=== PATIENT | female | born 1945 | race Caucasian/White ===

== ENCOUNTER 2022-09-03 16:03 | Emergency (ER) | payer OTHER, BC ==
[2022-09-03 17:44] LABS: Absolute Lymphocytes (CBC) 0.6 K/uL (0.7-4.9); MCV 91.4 fL (80-100); MPV 7.6 fL (7.6-11.3); Protime INR 1.05; RBC Red Blood Cell Count 4.05 M/uL (3.86-4.86)
[2022-09-03 17:52] LABS: Specific Gravity 1.008 (1.005-1.030); Urine Bilirubin NEGATIVE (Negative); Urine Blood Negative (Negative); Urine Clarity Clear (Clear); Urine Color Colorless (Yellow); Urine Glucose NEGATIVE (Negative); Urine Protein NEGATIVE (Negative); Urine Urobilinogen Normal (Normal); Urine pH 5.5 (5.0-7.0)
[2022-09-03] MEDS ORDERED: NA CHLORIDE 0.9% 500 ML ONE (17:54)
[2022-09-03 18:11] LABS: ALT/SGPT 40 U/L (13-56); AST/SGOT 78 U/L (15-37); Albumin 3.6 g/dL (3.4-5.0); Alkaline Phosphatase 130 U/L (45-117); BUN Blood Urea Nitrogen 18 mg/dL (7-18); Bicarbonate 27 mEq/L (21-32); Bilirubin Total 0.4 mg/dL (0.2-1.0); Glomerular Filtration Rate 49 ml/min (=/>90); Glucose Level 115 mg/dL (74-106); Magnesium 2.2 mg/dL (1.6-2.4); NT PRO-BNP 334 pg/mL (<450); Potassium 3.6 mEq/L (3.5-5.1); Protein, Total 8.3 g/dL (6.4-8.2); Sodium Level 130 mEq/L (136-145); Troponin High Sensitivity 7.8 pg/mL (<58.9)
[2022-09-03 18:19] LABS: Bilirubin Direct < 0.1 mg/dL (0-0.2); Bilirubin Indirect, Calculated ND mg/dL (0.2-0.8)
--- NOTE | 2022-09-03 18:54 | ER ---
Nurse's Notes [facility] Name: Olivia Johnston Age: 77 yrs Sex: Female : 1945 Arrival Date: 09/03/2022 Time: 16:03 Bed 14 Private MD: Kolton Hannah Diagnosis: Essential (primary) hypertension;Palpitations Presentation: 09/03 16:40 Chief complaint: Patient states: Went to PCP today because wasn't feeling good, a nj1 little nauseous, food doesn't taste very good, going on for 2 weeks. While at their office was advised to come to ED because of high blood pressure and rapid heart beat. Coronavirus screen: Vaccine status: Patient reports being unvaccinated. Ebola Screen: Patient denies travel to an Ebola-affected area in the 21 days before illness onset. Initial Sepsis Screen: Does the patient meet any 2 criteria? No. Patient's initial sepsis screen is negative. Does the patient have a suspected source of infection? No. Patient's initial sepsis screen is negative. Risk Assessment: Do you want to hurt yourself or someone else? Patient reports no desire to harm self or others. Onset of symptoms was August 20, 2022. 16:40 Method Of Arrival: Ambulatory [facility] 16:40 Acuity: SAKINA 3 nj1 Triage Assessment: 17:40 General: Appears in no apparent distress. Behavior is cooperative, appropriate for age, bp anxious. Pain: Denies pain. EENT: No deficits noted. Neuro: No deficits noted. Cardiovascular: No deficits noted. Respiratory: No deficits noted. GI: No signs and/or symptoms were reported involving the gastrointestinal system. : No signs and/or symptoms were reported regarding the genitourinary system. Derm: No deficits noted. Musculoskeletal: No deficits noted. Historical: - Allergies: 16:45 No Known Allergies; nj1 - Home Meds: 16:46 losartan 100 mg oral tablet 1 tab daily [Active]; amlodipine 5 mg tablet 1 tab daily nj1 [Active]; - PMHx: 16:45 Hypertensive disorder; High cholesterol; nj1 - PSHx: 16:45 None; nj1 - Immunization history:: Client reports having NOT received the Covid vaccine. - Social history:: Smoking status: Patient denies any tobacco usage or history of. Screenin:[address] [facility] ED Fall Risk Assessment (Adult) History of falling in the last 3 months, bp including since admission No falls in past 3 months (0 pts). Abuse screen: Denies threats or abuse. Denies injuries from another. Nutritional screening: No deficits noted. Tuberculosis screening: No symptoms or risk factors identified. Assessment: 17:40 General: SEE TRIAGE NOTE. bp 18:36 Reassessment: Patient appears in no apparent distress at this time. Patient is alert, bp oriented x 3, equal unlabored respirations, skin warm/dry/pink. Vital Signs: 16:40 BP 180 / 96; Pulse 91; Resp 18; Temp 97.9(TE); Pulse Ox 99% ; Weight 66.68 kg; Height 5 nj1 ft. 5 in. ; Pain 0/10; 18:35 BP 162 / 79; Pulse 80; Resp 16; Pulse Ox 96% ; bp 16:40 Body Mass Index 24.46 (66.68 kg, 165.1 cm) nj1 16:40 Pain Scale: Adult [facility] ED Course: 16:08 Patient arrived in ED. mr 16:08 Kolton Hannah MD is Private Physician. mr 16:43 Eduard Sales MD is Attending Physician. dayron 16:45 Triage completed. nj1 16:46 Arm band placed on right wrist. nj1 17:35 Red Hdz, TAMI is Primary Nurse. bp 17:40 Patient has correct armband on for positive identification. Bed in low position. Call bp light in reach. Side rails up X2. 17:40 Inserted saline lock: 22 gauge in right forearm, using aseptic technique. bp 17:59 XRAY Chest (1 view) In Process Unspecified. EDMS 18:53 Kolton Hannah MD is Referral Physician. dayron 18:53 Cirilo Augustin MD is Referral Physician. dayron 19:20 No provider procedures requiring assistance completed. IV discontinued, intact, lg3 bleeding controlled, No redness/swelling at site. Pressure dressing applied. Administered Medications: 17:53 Drug: NS 0.9% IV 500 ml Route: IV; Rate: bolus; Site: right antecubital; bp Medication: 17:40 VIS not applicable for this client. bp Outcome: 18:53 Discharge ordered by . dayron 19:20 Discharged to home ambulatory. lg3 19:20 Condition: stable 19:20 Discharge instructions given to patient, Instructed on discharge instructions, follow up and referral plans. Demonstrated understanding of instructions, follow-up care. 19:21 Patient left the ED. lg3 Signatures: Dispatcher [employer] EDEduard Morales MD MD cha Rivera, Mary mr Peltier, Brian, RN RN Naz Gallego RN RN lg3 Olivia Scott RN RN nj1
--- NOTE | 2022-09-03 18:54 | EDPHYS ---
Physician Documentation [facility] Name: Olivia Johnston Age: 77 yrs Sex: Female : 1945 Arrival Date: 09/03/2022 Time: 16:03 Bed 14 Private MD: Kolton Hannah ED Physician Eduard Sales HPI: 09/03 18:40 This 77 yrs old Female presents to ER via Ambulatory with complaints of High dayron Blood Pressure, fast heart rate. 18:40 The patient has elevated blood pressure and discovered this at home. Onset: The dayron symptoms/episode began/occurred just prior to arrival, this morning. Modifying factors: The symptoms are aggravated by activity, The symptoms are alleviated by remaining still. Associated signs and symptoms: The patient has no apparent associated signs or symptoms. Severity of symptoms: At its worst the blood pressure was mild, in the emergency department the blood pressure is unchanged. The patient has not experienced similar symptoms in the past. Historical: - Allergies: 16:45 No Known Allergies; nj1 - Home Meds: 16:46 losartan 100 mg oral tablet 1 tab daily [Active]; amlodipine 5 mg tablet 1 tab daily nj1 [Active]; - PMHx: 16:45 Hypertensive disorder; High cholesterol; nj1 - PSHx: 16:45 None; nj1 - Immunization history:: Client reports having NOT received the Covid vaccine. - Social history:: Smoking status: Patient denies any tobacco usage or history of. ROS: 18:41 Constitutional: Negative for fever, chills, and weight loss, Eyes: Negative for injury, dayron pain, redness, and discharge, ENT: Negative for injury, pain, and discharge, Neck: Negative for injury, pain, and swelling, Respiratory: Negative for shortness of breath, cough, wheezing, and pleuritic chest pain, Abdomen/GI: Negative for abdominal pain, nausea, vomiting, diarrhea, and constipation, Back: Negative for injury and pain, : Negative for injury, bleeding, discharge, and swelling, MS/Extremity: Negative for injury and deformity, Skin: Negative for injury, rash, and discoloration, Neuro: Negative for headache, weakness, numbness, tingling, and seizure, Psych: Negative for depression, anxiety, suicide ideation, homicidal ideation, and hallucinations, Allergy/Immunology: Negative for hives, rash, and allergies, Endocrine: Negative for neck swelling, polydipsia, polyuria, polyphagia, and marked weight changes, Hematologic/Lymphatic: Negative for swollen nodes, abnormal bleeding, and unusual bruising. 18:41 Cardiovascular: Positive for palpitations. Exam: 18:41 Constitutional: This is a well developed, well nourished patient who is awake, alert, dayron and in no acute distress. Head/Face: Normocephalic, atraumatic. Eyes: Pupils equal round and reactive to light, extra-ocular motions intact. Lids and lashes normal. Conjunctiva and sclera are non-icteric and not injected. Cornea within normal limits. Periorbital areas with no swelling, redness, or edema. ENT: Nares patent. No nasal discharge, no septal abnormalities noted. Tympanic membranes are normal and external auditory canals are clear. Oropharynx with no redness, swelling, or masses, exudates, or evidence of obstruction, uvula midline. Mucous membranes moist. Neck: Trachea midline, no thyromegaly or masses palpated, and no cervical lymphadenopathy. Supple, full range of motion without nuchal rigidity, or vertebral point tenderness. No Meningismus. Chest/axilla: Normal chest wall appearance and motion. Nontender with no deformity. No lesions are appreciated. Cardiovascular: Regular rate and rhythm with a normal S1 and S2. No gallops, murmurs, or rubs. Normal PMI, no JVD. No pulse deficits. Respiratory: Lungs have equal breath sounds bilaterally, clear to auscultation and percussion. No rales, rhonchi or wheezes noted. No increased work of breathing, no retractions or nasal flaring. Abdomen/GI: Soft, non-tender, with normal bowel sounds. No distension or tympany. No guarding or rebound. No evidence of tenderness throughout. Back: No spinal tenderness. No costovertebral tenderness. Full range of motion. Female : Normal external genitalia. Skin: Warm, dry with normal turgor. Normal color with no rashes, no lesions, and no evidence of cellulitis. MS/ Extremity: Pulses equal, no cyanosis. Neurovascular intact. Full, normal range of motion. Neuro: Awake and alert, GCS 15, oriented to person, place, time, and situation. Cranial nerves II-XII grossly intact. Motor strength 5/5 in all extremities. Sensory grossly intact. Cerebellar exam normal. Normal gait. Psych: Awake, alert, with orientation to person, place and time. Behavior, mood, and affect are within normal limits. Vital Signs: 16:40 BP 180 / 96; Pulse 91; Resp 18; Temp 97.9(TE); Pulse Ox 99% ; Weight 66.68 kg; Height 5 nj1 ft. 5 in. ; Pain 0/10; 18:35 BP 162 / 79; Pulse 80; Resp 16; Pulse Ox 96% ; bp 16:40 Body Mass Index 24.46 (66.68 kg, 165.1 cm) nj1 16:40 Pain Scale: Adult nj1 MDM: 16:43 Patient medically screened. dayron 18:42 Differential diagnosis: arrythmia, dehydration, hypertensive crisis, Malignant HTN. dayron Data reviewed: vital signs, nurses notes, lab test result(s), EKG, radiologic studies, plain films. Consideration of Admission/Observation Escalation of care including admission/observation considered. I considered the following discharge prescriptions or medication management in the emergency department Medications were administered in the Emergency Department. See MAR. Test considered but Not performed: CT: ct chest. Care significantly affected by the following chronic conditions: Hypertension, Obesity, high chlesterol. Counseling: I had a detailed discussion with the patient and/or guardian regarding: the historical points, exam findings, and any diagnostic results supporting the discharge/admit diagnosis, lab results, radiology results, the need for outpatient follow up, for definitive care, a digital content marketing manager, a family practitioner. 09/03 16:47 Order name: Basic Metabolic Panel; Complete Time: 18:37 [facility] 09/03 16:47 Order name: CBC with Diff; Complete Time: 18:30 [facility] 09/03 16:47 Order name: LFT's; Complete Time: 18:37 [facility] 09/03 16:47 Order name: Magnesium; Complete Time: 18:37 [facility] 09/03 16:47 Order name: NT PRO-BNP; Complete Time: 18:37 [facility] 09/03 16:47 Order name: PT-INR; Complete Time: 18:30 [facility] 09/03 16:47 Order name: Troponin HS; Complete Time: 18:37 [facility] 09/03 16:47 Order name: TSH; Complete Time: 18:37 [facility] 09/03 16:47 Order name: Urinalysis w/ reflexes; Complete Time: 18:30 [facility] 09/03 18:21 Order name: T4 Free; Complete Time: 18:37 [facility] 09/03 16:47 Order name: XRAY Chest (1 view) [facility] 09/03 16:47 Order name: EKG; Complete Time: 16:48 [facility] 09/03 16:47 Order name: Cardiac monitoring; Complete Time: 17:43 [facility] 09/03 16:47 Order name: EKG - Nurse/Tech; Complete Time: 18:47 [facility] 09/03 16:47 Order name: IV Saline Lock; Complete Time: 17:53 [facility] 09/03 16:47 Order name: Labs collected and sent; Complete Time: 17:43 [facility] 09/03 16:47 Order name: O2 Per Protocol; Complete Time: 17:43 [facility] 09/03 16:47 Order name: O2 Sat Monitoring; Complete Time: 17:43 dayron Administered Medications: 17:53 Drug: NS 0.9% IV 500 ml Route: IV; Rate: bolus; Site: right antecubital; bp Disposition Summary: 09/03/22 18:53 Discharge Ordered Location: Home dayron Problem: new dayron Symptoms: have improved dayron Condition: Stable dayron Diagnosis - Essential (primary) hypertension dayron - Palpitations dayron Followup: dayron - With: - When: 2 - 3 days - Reason: Recheck today's complaints, Continuance of care, Re-evaluation by your physician Followup: dayron - With: - When: 2 - 3 days - Reason: Recheck today's complaints, Re-evaluation by your physician Discharge Instructions: - Discharge Summary Sheet dayron - Hypertension, Adult dayron - Palpitations dayron - Hypertension, Adult, [id number] dayron - How to Take Your Blood Pressure, [id number] dayron - Aspirin and Your Heart dayron - Palpitations, [id number] dayron Forms: - Medication Reconciliation Form dayron - Thank You Letter dayron - Antibiotic Education dayron - Prescription Opioid Use dayron Signatures: Dispatcher [employer] Eduard Patino MD MD cha Peltier, Brian, RN RN bp Olivia Scott RN RN nj1
--- NOTE | 2022-09-03 19:33 | RAD REPORT ---
EXAM DESCRIPTION: Gregg Single View09/03/2022 5:57 pm CLINICAL HISTORY: PALPITATIONS COMPARISON: No comparisons TECHNIQUE: Portable AP view of the chest. FINDINGS: No focal consolidation. Perihilar interstitial thickening particularly on the left. No pne umothorax or effusion. The cardiomediastinal contours are unremarkable. IMPRESSION: Perihilar interstitial thickening particularly on the left, could reflect mild congestiv e changes.
[2022-09-03 19:34] VITALS: TEMP 97.9
[2022-09-03 19:36] VITALS: BP 162/79; O2SAT 96
--- NOTE | 2022-09-04 11:22 | EKG ---
Test Date: 2022-09-03 Test Time: 18:44:53 Cnc Field Service Engineer: BP MEASUREMENT RESULTS: Intervals: Rate: 78 TX: 154 QRSD: 74 QT: 386 QTc: 440 [place]: P: 42 TX: 154 QRS: 21 T: -39 INTERPRETIVE STATEMENTS: Normal sinus rhythm ST & T wave abnormality, consider anterior ischemia Abnormal ECG Compared to ECG 03/16/1998 15:19:00 Possible ischemia now present Sinus tachycardia no longer present ST (T wave) deviation still present Electronically Signed On 09-04-22 11:20:09 CDT by Don Sprague
== END 2022-09-03 19:21 | disposition home or self-care (01) ==
LOC: ER 16:03
DX: I10 Essential (primary) hypertension (principal); R00.2 Palpitations; E78.00 Pure hypercholesterolemia, unspecified
CPT/HCPCS: 85025; 80048; 36415; 83735; 85610; 80076; 84443; 81003; 84484; 84439; 83880; 71045; J7040; 93005

== ENCOUNTER 2022-09-11 21:41 | Emergency (ER) | payer OTHER, BC ==
[2022-09-11] MEDS ORDERED: TRAMADOL HCL 50 MG TAB ONE (23:08)
[2022-09-11] MEDS ORDERED: ONDANSETRON 4 MG (ODT) TAB ONE (23:08)
--- NOTE | 2022-09-12 00:28 | ER ---
Nurse's Notes [facility] Name: Olivia Johnston Age: 77 yrs Sex: Female : 1945 Arrival Date: 09/11/2022 Time: 21:41 Bed IW5 Private MD: Diagnosis: Back Pain Presentation: 09/11 22:53 Chief complaint: Patient states: back pain X3 weeks with nausea. Coronavirus screen: lg3 Client denies travel out of the [place] in the last 14 days. At this time, the client does not indicate any symptoms associated with coronavirus-19. Ebola Screen: No symptoms or risks identified at this time. Initial Sepsis Screen: Does the patient meet any 2 criteria? No. Patient's initial sepsis screen is negative. Does the patient have a suspected source of infection? No. Patient's initial sepsis screen is negative. Risk Assessment: Do you want to hurt yourself or someone else? Patient reports no desire to harm self or others. Onset of symptoms is unknown. 22:53 Method Of Arrival: Ambulatory lg3 22:53 Acuity: SAKINA 3 lg3 Triage Assessment: 22:57 General: Appears in no apparent distress. uncomfortable, Behavior is calm, cooperative. lg3 Pain: Complains of pain in back. EENT: No deficits noted. No signs and/or symptoms were reported regarding the EENT system. Neuro: No deficits noted. Saunders Agitation-Sedation Scale (RASS): 0 - Alert and Calm Level of Consciousness is awake, alert, obeys commands, Oriented to person, place, time, situation. Cardiovascular: No deficits noted. Denies chest pain, shortness of breath, Capillary refill < 3 seconds Clubbing of nail beds is absent JVD is absent Patient's skin is warm and dry. Respiratory: No deficits noted. Airway is patent Respiratory effort is even, unlabored, Respiratory pattern is regular, symmetrical. GI: Reports nausea. : No deficits noted. No signs and/or symptoms were reported regarding the genitourinary system. Derm: No deficits noted. No signs and/or symptoms reported regarding the dermatologic system. Skin is intact, Skin is dry, Skin is normal, Skin temperature is warm. Musculoskeletal: Circulation, motion, and sensation intact. Range of motion: intact in all extremities, Reports pain in back. Historical: - Allergies: 22:57 No Known Allergies; lg3 - Home Meds: 22:57 amlodipine 5 mg tablet 1 tab daily [Active]; losartan 100 mg Oral tablet 1 tab daily lg3 [Active]; - PMHx: 22:57 High Cholesterol; Hypertensive disorder; lg3 - PSHx: 22:57 None; lg3 - Immunization history:: Adult Immunizations up to date, Client reports having NOT received the Covid vaccine. Flu vaccine is not up to date. - Social history:: Smoking status: Patient denies any tobacco usage or history of. Patient/guardian denies using alcohol, street drugs. Screenin/26 00:30 [facility] ED Fall Risk Assessment (Adult) History of falling in the last 3 months, lg3 including since admission No falls in past 3 months (0 pts). Abuse screen: Denies threats or abuse. Denies injuries from another. Nutritional screening: No deficits noted. Tuberculosis screening: No symptoms or risk factors identified. Assessment: 09/11 23:15 General: see triage assessment. lg3 09/12 00:30 Reassessment: Patient appears in no apparent distress at this time. No changes from lg3 previously documented assessment. Patient and/or family updated on plan of care and expected duration. Pain level reassessed. Patient is alert, oriented x 3, equal unlabored respirations, skin warm/dry/pink. Vital Signs: 09/11 22:53 BP 178 / 97; Pulse 101; Resp 17 S; Temp 98.1(O); Pulse Ox 99% on R/A; Weight 65.32 kg lg3 (R); Height 5 ft. 5 in. (R); 09/12 00:30 BP 129 / 74; Pulse 77; Resp 17 S; Pulse Ox 98% on R/A; lg3 00:53 BP 135 / 70; Pulse 74; Resp 18; Pulse Ox 97% on R/A; Pain 3/10; pf1 09/11 22:53 Body Mass Index 23.96 (65.32 kg, 165.1 cm) lg3 00:53 Pain Scale: Adult pf1 ED Course: 09/11 21:43 Patient arrived in ED. ja2 22:29 [facility] Vel[facility]quez [facility]C [facility] kb 22:29 Artemio Santos MD is Attending Physician. kb 22:57 Triage completed. lg3 22:57 Arm band placed on right wrist. lg3 23:51 XRAY Thoracic Spine (Ap/lat) In Process Unspecified. EDMS 09/12 00:30 Patient has correct armband on for positive identification. Placed in gown. Bed in low lg3 position. Call light in reach. Side rails up X 1. Client placed on continuous cardiac and pulse oximetry monitoring. NIBP monitoring applied. Door closed. Noise minimized. Warm blanket given. Family accompanied patient. 00:30 No provider procedures requiring assistance completed. Patient did not have IV access lg3 during this emergency room visit. Administered Medications: 09/11 23:01 Drug: Ondansetron PO 4 mg Route: PO; lg3 09/12 00:30 Follow up: Response: No adverse reaction lg3 09/11 23:01 Drug: traMADol PO 25 mg Route: PO; lg3 09/12 00:30 Follow up: BP 129 / 74; Pulse 77 bpm; Resp 17 bpm Spontaneous; Pulse Ox 98% RA lg3 Medication: 09/11 00:30 VIS not applicable for this client. lg3 Outcome: 09/12 00:27 Discharge ordered by . kb 00:54 Discharged to home ambulatory, with family. pf1 00:54 Condition: improved 00:54 Discharge instructions given to patient, family, Instructed on discharge instructions, follow up and referral plans. Demonstrated understanding of instructions, follow-up care, medications. 00:54 Patient left the ED. pf1 Signatures: Dispatcher [employer] EDTN Sury Velazquez, FEDERICO PARSON-Naz White RN RN lg3 Linda Grady Pamala, TAMI RN pf1
--- NOTE | 2022-09-12 00:28 | EDPHYS ---
Physician Documentation [facility] Name: Olivia Johnston Age: 77 yrs Sex: Female : 1945 Arrival Date: 09/11/2022 Time: 21:41 Bed IW5 Private MD: ED Physician Artemio Santos HPI: 09/11 22:56 This 77 yrs old Female presents to ER via Unassigned with complaints of Back Pain. kb 22:56 The patient presents with pain that is chronic, with no known mechanism of injury. The kb symptoms are located in the thoracic area. Onset: The symptoms/episode began/occurred 3 week(s) ago. The pain does not radiate. Associated signs and symptoms: The patient has no apparent associated signs or symptoms. The problem was sustained from twisting. Modifying factors: The patient symptoms are alleviated by nothing, the patient symptoms are aggravated by any movement. Severity of symptoms: At their worst the symptoms were moderate, in the emergency department the symptoms are unchanged. The patient has not experienced similar symptoms in the past. The patient has not recently seen a physician. Pt reports pain to thoracic spine that started 3 weeks ago after twisting to get something out of backseat. Was seen by Dr Hannah and given meloxicam, but pain persists. Historical: - Allergies: 22:57 No Known Allergies; lg3 - Home Meds: 22:57 amlodipine 5 mg tablet 1 tab daily [Active]; losartan 100 mg Oral tablet 1 tab daily lg3 [Active]; - PMHx: 22:57 High Cholesterol; Hypertensive disorder; lg3 - PSHx: 22:57 None; lg3 - Immunization history:: Adult Immunizations up to date, Client reports having NOT received the Covid vaccine. Flu vaccine is not up to date. - Social history:: Smoking status: Patient denies any tobacco usage or history of. Patient/guardian denies using alcohol, street drugs. ROS: 22:56 Constitutional: Negative for fever, chills, and weight loss. kb 22:56 Back: Positive for pain at rest, pain with movement, of the thoracic area. 22:56 All other systems are negative. Exam: 22:56 Constitutional: This is a well developed, well nourished patient who is awake, alert, kb and in no acute distress. Head/Face: Normocephalic, atraumatic. ENT: Moist Mucous membranes Cardiovascular: Regular rate and rhythm with a normal S1 and S2. No gallops, murmurs, or rubs. No pulse deficits. Respiratory: Respirations even and unlabored. No increased work of breathing. Talking in full sentences Abdomen/GI: Soft, non-tender. No distention Skin: Warm, dry with normal turgor. Normal color. MS/ Extremity: Pulses equal, no cyanosis. Neurovascular intact. Full, normal range of motion. Neuro: Awake and alert, GCS 15, oriented to person, place, time, and situation. Moves all extremities. Normal gait. 22:56 Back: vertebral tenderness, is appreciated at T8, T9 and T10. Vital Signs: 22:53 BP 178 / 97; Pulse 101; Resp 17 S; Temp 98.1(O); Pulse Ox 99% on R/A; Weight 65.32 kg lg3 (R); Height 5 ft. 5 in. (R); 09/12 00:30 BP 129 / 74; Pulse 77; Resp 17 S; Pulse Ox 98% on R/A; lg3 00:53 BP 135 / 70; Pulse 74; Resp 18; Pulse Ox 97% on R/A; Pain 3/10; pf1 09/11 22:53 Body Mass Index 23.96 (65.32 kg, 165.1 cm) lg3 00:53 Pain Scale: Adult pf1 MDM: 09/11 22:29 Patient medically screened. 22:58 Differential diagnosis: herniated disc, fracture, strain. Data reviewed: vital signs, nurses notes. 09/12 00:27 Counseling: I had a detailed discussion with the patient and/or guardian regarding: the kb historical points, exam findings, and any diagnostic results supporting the discharge/admit diagnosis, radiology results, the need for outpatient follow up, a family practitioner, to return to the emergency department if symptoms worsen or persist or if there are any questions or concerns that arise at home. 09/11 22:35 Order name: XRAY Thoracic Spine (Ap/lat) kb Administered Medications: 09/11 23:01 Drug: Ondansetron PO 4 mg Route: PO; 3 09/12 00:30 Follow up: Response: No adverse reaction [facility] 09/11 23:01 Drug: traMADol PO 25 mg Route: PO; lg3 09/12 00:30 Follow up: BP 129 / 74; Pulse 77 bpm; Resp 17 bpm Spontaneous; Pulse Ox 98% RA lg3 Disposition: 07:11 Co-signature as Attending Physician, Artemio Santos MD I agree with the assessment sp4 and plan of care. I reviewed the patient's care provided by the Advanced Practice Provider and agree with the diagnosis and treatment plan. Disposition Summary: 09/12/22 00:27 Discharge Ordered Location: Home kb Condition: Stable kb Diagnosis - Back Pain kb Followup: kb - With: Emergency Department - When: As needed - Reason: Worsening of condition Followup: kb - With: Private Physician - When: 2 - 3 days - Reason: Recheck today's complaints, Continuance of care, Re-evaluation by your physician Discharge Instructions: - Discharge Summary Sheet kb - Acute Back Pain, Adult kb Forms: - Medication Reconciliation Form kb - Thank You Letter kb - Antibiotic Education kb - Prescription Opioid Use kb Signatures: Dispatcher [employer] EDSury Duran, [employer]-Naz White, RN RN lg3 Artemio Santos MD MD sp4
[2022-09-12 01:16] VITALS: TEMP 98.1
[2022-09-12 01:18] VITALS: BP 135/70; O2SAT 97
--- NOTE | 2022-09-12 10:59 | RAD REPORT ---
EXAM DESCRIPTION: RAD - Thoracic Spine Ap/Lat - 09/11/2022 11:49 pm CLINICAL HISTORY: PAIN COMPARISON: None. TECHNIQUE: XR THORACIC SPINE 2 VIEWS 09/11/2022 10:35 PM CDT FINDINGS: There is no acute fracture. Vertebral body heights are preserved. Alignment is anatomic. There is moderate to severe narrowing of most of the thoracic discs. Soft tissues are unremarkable. IMPRESSION: No acute fracture or subluxation. Electronically signed by: John Owen MD 09/12/2022 12:01 AM CDT Due to temporary technical issues with the PACS/Fluency reporting system, reports are being signed by the in house radiologist without review as a courtesy to ensure prompt reporting. The interpreting r adiologist is fully responsible for the content of the report.
== END 2022-09-12 00:54 | disposition home or self-care (01) ==
LOC: ER 21:41
DX: M54.9 Dorsalgia, unspecified (principal); I10 Essential (primary) hypertension
CPT/HCPCS: 72070; 99283; Q0162

== ENCOUNTER 2022-09-16 12:18 | Inpatient (IN) | payer OTHER, BC ==
[2022-09-16 12:59] LABS: Absolute Lymphocytes (CBC) 0.6 K/uL (0.7-4.9); Hematocrit 37.9 % (36.0-45.0); Lymphocytes % 6.3 % (15.3-44.8); MCV 91.9 fL (80-100); RBC Red Blood Cell Count 4.12 M/uL (3.86-4.86)
[2022-09-16 13:16] LABS: Albumin 3.7 g/dL (3.4-5.0); Bilirubin Total 0.5 mg/dL (0.2-1.0); Potassium 3.9 mEq/L (3.5-5.1); Protein, Total 8.3 g/dL (6.4-8.2)
--- NOTE | 2022-09-16 13:32 | RAD REPORT ---
EXAM DESCRIPTION: CT - Head Brain Wo Cont - 09/16/2022 1:09 pm CLINICAL HISTORY: Confusion COMPARISON: None TECHNIQUE: Computed axial tomography of the head was obtained. IV contrast was not requested. All CT scans are performed using dose optimization technique as appropriate and may include automated exposure control or mA/KV adjustment according to patient size. FINDINGS: 2 centimeter lesion right internal capsule with moderate surrounding edema. 1.1 centimeters lesion right cerebellum with mild to moderate surrounding edema. Equivocal small lesion right frontal lobe with mild surrounding edema. Probable small left frontal lo be lesion with surrounding edema. Equivocal right thalamus lesion. Right lateral ventricle is compressed. Shift of the midline structures 4 millimeters. Fluid within the sinuses/ mastoids is not seen. IMPRESSION: Cerebral and cerebellar metastases most likely from breast carcinoma. Surrounding edema results in shift of the midline structures 4 millimeters to the left
--- NOTE | 2022-09-16 13:38 | RAD REPORT ---
EXAM DESCRIPTION: CT - Thorax Wo Con - 09/16/2022 1:09 pm CLINICAL HISTORY: Chest pain COMPARISON: none TECHNIQUE: Computed axial tomography of the chest was obtained. Contrast was not requested. All CT scans are performed using dose optimization technique as appropriate and may include automated exposure control or mA/KV adjustment according to patient size. FINDINGS: The evaluation of mediastinum, faye and vessels is limited secondary to lack of IV contras t administration. 10 centimeter mass posterior inner left breast extends midline within the anterior subcutaneous tissu e abutting the sternum. Left breast skin thickening with 9 millimeter nodule posterior left breast. Moderate left axillary lymphadenopathy. Moderate mediastinal lymphadenopathy. Multiple bilateral lung nodules. Largest measures 1.3 centimeters. Multiple hepatic lesions. Largest anterior segment right lobe 6.5 centimeters IMPRESSION: 10 centimeter left breast mass extending into the anterior subcutaneous tissue of the ch est midline. This is likely breast carcinoma. Left axillary and mediastinal lymphadenopathy, liver and lung lesions likely metastases Thoracic spine metastases will be described on a CT thoracic spine today's date
--- NOTE | 2022-09-16 13:46 | RAD REPORT ---
EXAM DESCRIPTION: CTThoracic Spine W/o Cont09/16/2022 1:09 pm CLINICAL HISTORY: Back pain. Back injury COMPARISON: None TECHNIQUE: Computed axial tomography of thoracic spine was obtained with coronal and sagittal recons truction. All CT scans are performed using dose optimization technique as appropriate and may include automated exposure control or mA/KV adjustment according to patient size. FINDINGS: 3.3 centimeter lytic lesion involves the right aspect of T10 vertebral body. There is a mi ld compression fracture. No dislocation. IMPRESSION: 3.3 centimeter pathologic fracture T10 vertebral body. No extension into the spinal pedro l noted
[2022-09-16] MEDS ORDERED: dexAMETHasone 4 MG/ML VIAL ONE (14:09)
[2022-09-16] MEDS ORDERED: dexAMETHasone 10 MG/ML VIAL ONE (14:09)
--- NOTE | 2022-09-16 15:21 | EDPHYS ---
Physician Documentation [facility] Name: Olivia Johnston Age: 77 yrs Sex: Female : 1945 Arrival Date: 09/16/2022 Time: 12:18 Bed IW10 Private MD: Kolton Hannah ED Physician Arvind Vieira HPI: 09/16 15:16 This 77 yrs old Female presents to ER via Wheelchair with complaints of bs3 Waxing and waning confusion. 15:16 77-year-old female history of hypertension hyperlipidemia presents with intermittent bs3 confusion over the last 3 weeks getting worse she has some difficulty remembering things difficulty with her balance and walking in addition on review of systems she reports a breast mass on her left side that has been going on for 1 year seen by her doctor and advised to come in given the progressive symptoms over the last 3 weeks she also reports upper back pain after a fall. Historical: - Allergies: 12:39 No Known Allergies; hb - Home Meds: 12:37 amlodipine 5 mg tablet 1 tab daily [Active]; losartan 100 mg Oral tablet 1 tab daily hb [Active]; - PMHx: 12:37 High Cholesterol; Hypertensive disorder; hb - Immunization history:: Adult Immunizations up to date. - Social history:: Smoking status: Patient denies any tobacco usage or history of. ROS: 15:16 Constitutional: Negative for fever, chills bs3 15:16 All other systems are negative. Exam: 15:16 Constitutional: This is a well developed, well nourished patient who is awake, alert, bs3 and in no acute distress. Head/Face: Normocephalic, atraumatic. Eyes: Pupils equal round and reactive to light, extra-ocular motions intact. Lids and lashes normal. ENT: mmm, no posterior phyarngeal erythema Neck: Trachea midline, no thyromegaly, no neck stiffness Cardiovascular: Regular rate and rhythm with a normal S1 and S2. symmetric pulses in upper extremities Respiratory: Lungs have equal breath sounds bilaterally, clear to auscultation, no respiratory distress Abdomen/GI: Soft, non-tender, no rebound or guarding MS/ Extremity: Pulses equal, no cyanosis. Neurovascular intact. Full, normal range of motion. Neuro: She is alert and oriented x3 she remembers her 's birthday but not her son's she knows the president knows where she is and knows why she is here Psych: Awake, alert, with orientation to person, place and time. Behavior, mood, and affect are within normal limits. Vital Signs: 12:36 BP 162 / 100; Pulse 76; Resp 18; Temp 99.1; Pulse Ox 97% on R/A; Weight 65.32 kg; hb Height 5 ft. 5 in. ; Pain 0/10; 12:36 Body Mass Index 23.96 (65.32 kg, 165.1 cm) hb 12:36 Pain Scale: Adult hb MDM: 12:25 Patient medically screened. bs3 15:16 Data reviewed: vital signs, nurses notes. ED course: Given the breast mass I have a bs3 concern for metastatic cancer also concern for metastases to the spine will get CT chest and thoracic spine we will do CT brain we will get labs and reassess work-up notable for metastatic cancer will give Decadron discussed with her primary care doctor who will admit her and discussed the results with her he wanted to discuss these results instead of myself. 09/16 12:39 Order name: CBC with Diff; Complete Time: 13:50 bs3 09/16 12:39 Order name: Comprehensive Metabolic Panel; Complete Time: 13:50 3 09/16 12:39 Order name: Urinalysis w/ reflexes bs3 09/16 12:39 Order name: Troponin High Sensitivity; Complete Time: 13:50 3 09/16 12:39 Order name: CT Chest Wo Con; Complete Time: 13:50 3 09/16 12:39 Order name: CT Thoracic Spine Wo Cont; Complete Time: 13:50 bs3 09/16 12:39 Order name: CT Head Brain wo Cont; Complete Time: 13:50 3 09/16 12:39 Order name: EKG - Nurse/Tech; Complete Time: 13:16 bs3 Administered Medications: 14:07 Drug: Decadron - Dexamethasone IVP 12 mg Route: IVP; Site: right antecubital; iw 14:44 Follow up: Response: No adverse reaction iw Disposition Summary: 09/16/22 15:20 Hospitalization Ordered Hospitalization Status: Inpatient Admission bs3 Provider: Kolton Hannah bs3 Location: Telemetry/MedSurg (Inpatient) bs3 Condition: Guarded bs3 Problem: new bs3 Symptoms: are unchanged bs3 Bed/Room Type: Standard bs3 Room Assignment: bs3 Diagnosis - Other encephalopathy bs3 Discharge Instructions: - Discharge Summary Sheet iw Forms: - SBAR form iw - Medication Reconciliation Form bs3 Signatures: Dispatcher [employer] Saniya Raymundo RN RN iw Baxter, Heather, RN RN hb Stein, Brandon, MD MD bs3 Corrections: (The following items were deleted from the chart) 12:56 12:50 Head Brain Wo Cont+CT.RAD.BRZ ordered. EDMS EDMS 12:56 12:50 Thoracic Spine WO Cont+CT.RAD.BRZ ordered. EDMS EDMS 12:56 12:50 Thorax Wo Con+CT.RAD.BRZ ordered. EDMS EDMS
--- NOTE | 2022-09-16 15:21 | ER ---
Nurse's Notes [facility] Name: Olivia Johnston Age: 77 yrs Sex: Female : 1945 Arrival Date: 09/16/2022 Time: 12:18 Bed IW10 Private MD: Kolton Hannah Diagnosis: Other encephalopathy Presentation: 09/16 12:37 Chief complaint: Patient's son or daughter states: change in memory and seems confused, hb unable to walk on her own and having balance issues and her left breast is discolored and swollen , over past couple weeks. Coronavirus screen: At this time, the client does not indicate any symptoms associated with coronavirus-19. Ebola Screen: Patient negative for fever greater than or equal to 101.5 degrees Fahrenheit, and additional compatible Ebola Virus Disease symptoms Patient denies exposure to infectious person. Patient denies travel to an Ebola-affected area in the 21 days before illness onset. No symptoms or risks identified at this time. Initial Sepsis Screen: Does the patient meet any 2 criteria? No. Patient's initial sepsis screen is negative. Does the patient have a suspected source of infection? No. Patient's initial sepsis screen is negative. Risk Assessment: Do you want to hurt yourself or someone else? Patient reports no desire to harm self or others. Onset of symptoms was September 03, 2022. 12:37 Method Of Arrival: Wheelchair hb 12:37 Acuity: SAKINA 3 hb Historical: - Allergies: 12:39 No Known Allergies; hb - Home Meds: 12:37 amlodipine 5 mg tablet 1 tab daily [Active]; losartan 100 mg Oral tablet 1 tab daily hb [Active]; - PMHx: 12:37 High Cholesterol; Hypertensive disorder; hb - Immunization history:: Adult Immunizations up to date. - Social history:: Smoking status: Patient denies any tobacco usage or history of. Screenin:55 [facility] ED Fall Risk Assessment (Adult). hb 14:44 Abuse screen: Denies threats or abuse. Denies injuries from another. Nutritional iw screening: No deficits noted. Tuberculosis screening: No symptoms or risk factors identified. Assessment: 12:55 General: Appears in no apparent distress. Behavior is calm, cooperative. Pain: Denies hb pain. Neuro: Level of Consciousness is awake, alert, obeys commands, Oriented to person, place, time, situation, Moves all extremities. Vital Signs: 12:36 BP 162 / 100; Pulse 76; Resp 18; Temp 99.1; Pulse Ox 97% on R/A; Weight 65.32 kg; hb Height 5 ft. 5 in. ; Pain 0/10; 12:36 Body Mass Index 23.96 (65.32 kg, 165.1 cm) hb 12:36 Pain Scale: Adult hb ED Course: 12:22 Patient arrived in ED. im 12:23 Kolton Hannah MD is Private Physician. im 12:25 Arvind Vieira MD is Attending Physician. bs3 12:39 Triage completed. hb 12:40 Inserted saline lock: 22 gauge in right antecubital area, using aseptic technique. hb 12:46 Comprehensive Metabolic Panel Sent. iw 12:46 CBC with Diff Sent. iw 12:46 Troponin High Sensitivity Sent. iw 12:55 Patient has correct armband on for positive identification. hb 13:11 CT Chest Wo Con In Process Unspecified. EDMS 13:11 CT Thoracic Spine Wo Cont In Process Unspecified. EDMS 13:11 CT Head Brain wo Cont In Process Unspecified. EDMS 14:44 No provider procedures requiring assistance completed. Patient admitted, IV remains in iw place. 14:44 Arm band placed on. iw 15:19 Kolton Hannah MD is Hospitalizing Provider. bs3 Administered Medications: 14:07 Drug: Decadron - Dexamethasone IVP 12 mg Route: IVP; Site: right antecubital; iw 14:44 Follow up: Response: No adverse reaction iw Medication: 12:55 VIS not applicable for this client. hb Outcome: 14:43 Admitted to Med/surg accompanied by tech, family with patient, via wheelchair, room iw 201, with chart, Report called to INDER GARRETT 14:43 Condition: stable 14:43 Instructed on the need for admit. 15:20 Decision to Hospitalize by Provider. bs3 15:31 Patient left the ED. bp Signatures: Dispatcher [employer] Saniya Raymundo, TAMI GARRETT iw Alejandra Hoang RN RN hb Red Hdz RN RN bp Arvind Vieira MD MD bs3 Jamee Singer im Corrections: (The following items were deleted from the chart) 12:40 12:36 Pulse 97bpm; Resp 18bpm; Pulse Ox 97% RA; Temp 99.1F; hb hb
[2022-09-16] MEDS ORDERED: LORAZEPAM 1 MG TABLET PO PRN (16:00)
[2022-09-16 16:02] VITALS: BMI 23.8
[2022-09-16] MEDS ORDERED: HYDRALAZINE HCL 20 MG/ML VIAL IV PRN (16:06)
[2022-09-16] MEDS ORDERED: HYDROMORPHONE HCL 0.5 MG/0.5 ML INJ IV PRN (16:06)
[2022-09-16] MEDS ORDERED: D10W 250 ML BAG IV PRN (16:08)
[2022-09-16] MEDS ORDERED: GLUCAGON 1 MG/VIAL IM PRN (16:08)
--- NOTE | 2022-09-16 16:15 | P.HP ---
Certification for Inpatient Patient admitted to: Inpatient With expected LOS: >2 Midnights Patient will require the following post-hospital care: [facility] Practitioner: I am a practitioner with admitting privileges, knowledge of patient current condition, hospital course, and medical plan of care. Services: Services provided to patient in accordance with Admission requirements found in Title 42 Section 412.3 of the Code of Federal Regulations Patient History Date of Service: 09/16/22 Primary Care Provider: Brielle Reason for admission: Metastatic breast cancer History of Present Illness: Patient is an office patient of [employer] with a history of htn and white coat syndrome. For the last few weeks she has been complaining of upper back pain. The patient has been confused a lot for the last few week. Her has been having to help her with ADl's. She has had falls, nausea. She did not know the month, president or season. Normally she is very sharp. The patient has had to help her in the shower and has noticed that her left breast is significantly large. she had a indurated mass. The patient was sent to the ER. was found to have a 10cm breast mass. She has a 2cm mass in the brain. With a thoracic fracture and liver mets. The patient was then admitted. She states she has had this mass for over a year. Allergies No Known Allergies Allergy (Unverified 09/16/22 15:40) - Past Medical/Surgical History Has patient received pneumonia vaccine in the past: No Diabetic: No -: HTN -: HLD - Social History Smoking Status: Never smoker Alcohol use: No CD- Drugs: No Caffeine use: No Place of Residence: Home Review of Systems is unable to be obtained General: Other Neurological: Confusion Other: indurated breast mass Physical Examination - Vital Signs Temperature: 99.1 F Blood Pressure: 162/100 Pulse: 76 Respirations: 18 - Physical Exam General: Delirious HEENT: Atraumatic, PERRLA, Mucous membr. moist/pink, EOMI, Sclerae nonicteric Neck: Supple, 2+ carotid pulse no bruit, No LAD, Without JVD or thyroid abnormality Respiratory: Clear to auscultation bilaterally, Normal air movement Cardiovascular: Regular rate/rhythm, Normal S1 S2 Gastrointestinal: Normal bowel sounds, No tenderness Musculoskeletal: No tenderness Integumentary: No rashes, Other (indurated mass of the left breast ) Neurological: Normal speech, Normal strength at 5/5 x4 extr, Normal tone, Normal affect, Abnormal gait Lymphatics: No axilla or inguinal lymphadenopathy - Studies Laboratory Data (last 24 hrs) 09/16/22 12:45: Sodium 127 L, Potassium 3.9, BUN 16, Creatinine 1.26 H, Glucose 119 H, Total Bilirubin 0.5, AST 96 H, ALT 61 H, Alkaline Phosphatase 136 H 09/16/22 12:45: WBC 8.90, Hgb 12.6, Hct 37.9, Plt Count 351 Assessment and Plan - Problems (Diagnosis) (1) Metastatic malignant neoplasm to breast Current Visit: Yes Status: Chronic Plan: will consult Dr. Delgado for a biopsy. Discussed the patient with Dr. Beckford. (2) Delirium Current Visit: Yes Status: Acute Plan: Most likely from the brain mets. Will start steroids and keppra Consult to Dr. Louie. Discharge Plan: Home Plan to discharge in: Greater than 2 days - Advance Directives Does patient have a Living Will: No Does patient have a Durable POA for Healthcare: No - Code Status/Comfort Care Code Status Assessed: Yes Code Status: Do Not Attempt Resuscitat Critical Care: No Time Spent Managing Pts Care (In Minutes): 75
[2022-09-16] MEDS ORDERED: LORazepam 2 MG/ML VIAL IV PRN (16:25)
[2022-09-16] MEDS: ENOXAPARIN 40 MG/0.4 ML SQ SCH (17:15)
[2022-09-16] MEDS: NA CHLORIDE 0.9% 1,000 ML IV SCH (17:15)
[2022-09-16] MEDS: dexAMETHasone 4 MG/ML VIAL IV SCH ×2 (17:16→20:48)
[2022-09-16] MEDS: INSULIN -REGULAR HUMAN 50 UNIT/0.5 ML ML SQ SCH ×2 (18:06→20:52)
[2022-09-16] MEDS: levETIRAcetam 500 MG TAB PO SCH (20:48)
[2022-09-17] MEDS: dexAMETHasone 4 MG/ML VIAL IV SCH ×6 (00:51→20:27)
[2022-09-17] MEDS: NA CHLORIDE 0.9% 1,000 ML IV SCH ×3 (05:20→17:48)
[2022-09-17 06:50] LABS: Absolute Lymphocytes (CBC) 0.5 K/uL (0.7-4.9); Hematocrit 35.1 % (36.0-45.0); Lymphocytes % 5.2 % (15.3-44.8); MCV 91.5 fL (80-100); MPV 7.3 fL (7.6-11.3); RBC Red Blood Cell Count 3.84 M/uL (3.86-4.86)
[2022-09-17 07:04] LABS: Albumin 3.4 g/dL (3.4-5.0); Bilirubin Total 0.5 mg/dL (0.2-1.0); Potassium 3.8 mEq/L (3.5-5.1); Protein, Total 7.6 g/dL (6.4-8.2)
[2022-09-17] MEDS: INSULIN -REGULAR HUMAN 50 UNIT/0.5 ML ML SQ SCH ×4 (07:30→21:00)
--- NOTE | 2022-09-17 07:54 | P.PN ---
Subjective Date of Service: 09/17/22 Primary Care Provider: Brielle Chief Complaint: Metastatic breast cancer Subjective: No new changes Review of Systems 10-point ROS is otherwise unremarkable Physical Examination - Vital Signs Temperature: 97.8 F Blood Pressure: 127/57 Pulse: 73 Respirations: 17 Pulse Ox (%): 96 - Physical Exam General: Alert, In no apparent distress HEENT: Atraumatic, PERRLA, EOMI Neck: Supple, JVD not distended Respiratory: Clear to auscultation bilaterally, Normal air movement Cardiovascular: Regular rate/rhythm, Normal S1 S2 Gastrointestinal: Normal bowel sounds, No tenderness Musculoskeletal: No tenderness Integumentary: No rashes Neurological: Normal speech, Normal tone, Normal affect Lymphatics: No axilla or inguinal lymphadenopathy - Studies Laboratory Data (last 24 hrs) 09/16/22 12:45: Sodium 127 L, Potassium 3.9, BUN 16, Creatinine 1.26 H, Glucose 119 H, Total Bilirubin 0.5, AST 96 H, ALT 61 H, Alkaline Phosphatase 136 H 09/16/22 12:45: WBC 8.90, Hgb 12.6, Hct 37.9, Plt Count 351 Assessment And Plan - Current Problems (Diagnosis) (1) Metastatic malignant neoplasm to breast Current Visit: Yes Status: Chronic Plan: will consult Dr. Delgado for a biopsy. Discussed the patient with Dr. Beckford. 09/17 plans for biopsy today. Will order a MRI of the brain per Dr. Beckford request. Her creatine has improved. Will continue her ivf (2) Delirium Current Visit: Yes Status: Acute Plan: Most likely from the brain mets. Will start steroids and keppra Consult to Dr. Louie. Discharge Plan: Home Plan to discharge in: 48 Hours - Code Status/Comfort Care Code Status Assessed: No Critical Care: No Time Spent Managing PTS Care (In Minutes): 20
[2022-09-17] MEDS: FAMOTIDINE 20 MG TAB PO SCH (09:00)
[2022-09-17] MEDS: COENZYME Q10- 200 MG CAP PO SCH (09:00)
[2022-09-17] MEDS: levETIRAcetam 500 MG TAB PO SCH ×2 (09:00→20:27)
--- NOTE | 2022-09-17 09:40 | RAD REPORT ---
EXAM DESCRIPTION: MRI - Brain W/Wo Cont - 09/17/2022 9:06 am CLINICAL HISTORY: Brain metastases/confusion COMPARISON: head CT September 16, 2022 TECHNIQUE: Axial, sagittal, and coronal magnetic images of the brain were obtained. 14 cc MultiHance administered intravenously FINDINGS: There are a large number of the enhancing metastases scattered throughout the brain. Over 20 lesions are present. They vary in size from a 1 millimeter to several centimeters. Brainstem, cere bellum and cerebral are involved. Largest lesion right internal capsule with large amount of surround ing edema. There is compression of the right lateral ventricle. Shift of midline structures approxima tely 4 millimeters to the left. There is surrounding vasogenic edema involving most of lesions. Fluid within the sinuses/mastoids is not seen IMPRESSION: Large number of brain metastases. Shift of the midline structures 4 millimeters to the left
--- NOTE | 2022-09-17 12:27 | P.CNS ---
Date of Consult: 09/17/22 PC: I was asked to see this 77-year-old old female in regards to a breast biopsy. HPC: This patient, who was being followed by her family practice doctor when he noticed a change in her mentation. She was hospitalized and on further work-up was to have some brain mets a significant lesion in her breast. PMHx: Hypertension Social Hx: No known allergies Sys R: No significant plaints at this time. She states that she has had this area in her breast for probably the last year and a half. O/E: Awake Chest: Chest expansion is normal on both sides. Just in the cleavage area, the and on the left breast extending towards the right is an area of irregularity of this breast tissue. It is firm and hard to the touch. Most likely representing a carcinoma. Abd: NAD Macy: Intact Data: Extensive metastatic disease seen on MRI Impression: Most likely carcinoma of the breast Plan: I will take her down to the operating room for biopsy of this breast. Hopefully we will be able to help with the ongoing treatment of her by obtaining some tissue for diagnosis, and/or receptors. The risks of this procedure were explained to the patient's family. They understand and wants to proceed.
--- NOTE | 2022-09-17 12:45 | P.CNS ---
Date of Consult: 09/17/22 Reason for Consultation: Brain metastases History of Present Illness: 77 year old woman from who presented to ER with 3 week history of mental status changes of confusion, ataxia and memory lapses. She also presented with a breast mass on the left that she reported as present for a year. She has been in ER for back pain and was to have outpatient MRI spine but found to have left breast mass and confusion, so admitted for evaluation. Review of systems: Pertinent positives are nausea, no headaches, general weakness, barely able to stand, unable to walk, yesterday disoriented to time, place and person. Physical Exam: General : moderate build HEENT: anicteric sclera, pupils reactive, no palpable neck mass/nodes Cardiac: regular rate and rhythmn Pulmonary: clear Musculoskeletal: no pain or tenderness, no cyanosis Neurologic: No gait testing, 4/5 strength upper and lower extremities, no lateralized weakness, good handgrips. Cranial nerves 2-10 grossly intract. Alert and oriented to person, time and place, recall of recent days activities patchy, unclear how long she has been in hospital. Findings: 09/16/2022 creatinine 1.26, est GFDR 43, Na 127L. 09/16/2022 non-contrast CT head 2 cm right internal capsule lesion with surrounding edema, 1.1 cm lesion in right cerebellum with mild to moderate surrounding edema, equivocal right frontal lobe small lesion with mild edema, probable small left frontal lobe lesion, equivocal right thalamic lesion. There is left midline shift of 4mm. 09/16/2022 non-contrast CT thorax- 10 cm left breast mass extending into the anterior subcutaneous midline chest tissues, left axillary and mediastinal lymphadenopathy, liver and lung lesions, plus thoracic spine vertebral metastases. 09/16/2022 CT thoracic spine- 3.3 cm lytic lesion in right aspect of T10 vertebral body with mild compression fracture and no extension into spinal canal. 09/17/2022 MRI brain- There are a large number of the enhancing metastases scattered throughout the brain. Over 20 lesions are present. They vary in size from a 1 millimeter to several centimeters. Brainstem, cerebellum and cerebral are involved. Largest lesion right internal capsule with large amount of surrounding edema. There is compression of the right lateral ventricle. Shift of midline structures approximately 4 millimeters to the left. There is surrounding vasogenic edema involving most of lesions. Assessment:77 year old woman with metastatic, likely breast cancer. Biopsy today. Plan: She is having a biopsy of the breast mass later today. She has a very poor prognosis with visceral and bone metastases, diffuse brain metastases and a bulky untreated primary site with a current poor performance status. She has improved on corticosteroids started yesterday. She is currently alert and oriented, still unable to ambulate independently. We can offer a brief palliative course of radiation to the brain with intent to possibly preserve what steroid treatment can improve, possibly allowing taper off, after discharged as an outpatient. She could benefit from medical oncology consul tation as outpatient.
[2022-09-17] MEDS ORDERED: Ringers Lactate 1,000 ML IV ONE (12:47)
[2022-09-17] MEDS ORDERED: propofoL 200 MG/20 ML VIAL IV ONE (12:55)
[2022-09-17] MEDS ORDERED: FENTANYL CITR 100 MCG/2 ML ONE (12:56)
[2022-09-17] MEDS ORDERED: ONDANSETRON 4 MG/2 ML VIAL ONE (12:57)
[2022-09-17] MEDS ORDERED: LIDOCAINE 2% MPF 5 ML VIAL ONE (12:57)
[2022-09-17] MEDS ORDERED: propofoL 1,000 MG/100 ML VIAL IV ONE (13:08)
--- NOTE | 2022-09-17 14:08 | P.OP ---
Preoperative diagnosis: Mass to the left breast Postoperative diagnosis: The same Primary procedure: Biopsy of lesion on the left breast x3 Anesthesia: MAC Estimated blood loss: Less than 10 cc Operative Technique: The patient brought the operating room placed supine on the table. After the induction of adequate sedation by anesthesia, the area of the chest was prepped with a Betadine solution, she was draped in the usual aseptic manner. Attention was turned towards the left and right breast. In the area of the cleavage on physical examination outside of the OR felt lightheaded may extend over to the right side. We were able to better define the disc appears to be more isolated just to the left breast it extended down towards the actual xiphoid. Attention was turned towards the mass and almost the anterior axillary line. A hard indurated area of tissue was noted in this part. A skin incision was made. The Darinel-Cut needle was now introduced through this incision and a specimen was obtained. We had a good core from that area. Dissection was taken in a different direction to ensure we had adequate tissue. This appeared to yield some fat. The area around the nipple appears to be contracted and hence it was 1 roll on the medial aspect about 2 cm from the lateral border of the sternum through which we obtained a another Darinel-Cut needle biopsy. This latter 1 was deemed the medial specimen, the other to the lateral. At the end of procedure the wounds were intact, dressings were applied. She was stable and sent to the recovery room. Complications: None Transferred to: Recovery Room Condition: Good
--- NOTE | 2022-09-17 14:38 | EKG ---
Test Date: 2022-09-16 Test Time: 13:14:38 Psychiatric Nursing Aide: OVI MEASUREMENT RESULTS: Intervals: Rate: 85 VT: 148 QRSD: 70 QT: 348 QTc: 414 [place]: P: 52 VT: 148 QRS: 8 T: -10 INTERPRETIVE STATEMENTS: Normal sinus rhythm ST & T wave abnormality, consider inferior ischemia Abnormal ECG Compared to ECG 09/03/2022 18:44:53 No significant changes Electronically Signed On 09-17-22 14:36:52 CDT by Cirilo Augustin
[2022-09-17] MEDS: ENOXAPARIN 40 MG/0.4 ML SQ SCH (16:31)
[2022-09-17] MEDS: AMLODIPINE 2.5 MG TAB PO SCH (20:27)
[2022-09-17] MEDS: LOSARTAN POTASSIUM 50 MG TABLET PO SCH (20:27)
[2022-09-18] MEDS: dexAMETHasone 4 MG/ML VIAL IV SCH ×6 (00:22→20:37)
[2022-09-18] MEDS: NA CHLORIDE 0.9% 1,000 ML IV SCH ×2 (00:22→14:11)
[2022-09-18 06:52] LABS: Absolute Lymphocytes (CBC) 0.3 K/uL (0.7-4.9); Hematocrit 33.9 % (36.0-45.0); Lymphocytes % 2.6 % (15.3-44.8); MCV 92.1 fL (80-100); MPV 7.6 fL (7.6-11.3); RBC Red Blood Cell Count 3.68 M/uL (3.86-4.86)
[2022-09-18 06:53] LABS: Albumin 3.2 g/dL (3.4-5.0); Bilirubin Total 0.5 mg/dL (0.2-1.0); Potassium 3.9 mEq/L (3.5-5.1)
[2022-09-18] MEDS: INSULIN -REGULAR HUMAN 50 UNIT/0.5 ML ML SQ SCH ×4 (07:30→20:37)
[2022-09-18 07:48] LABS: Blood Morphology Comment NOT SEEN (NOT SEEN); Platelet Estimate ADEQ; White Blood Cell Scan OK (OK)
[2022-09-18] MEDS: COENZYME Q10- 200 MG CAP PO SCH (09:59)
[2022-09-18] MEDS: FAMOTIDINE 20 MG TAB PO SCH (10:00)
[2022-09-18] MEDS: levETIRAcetam 500 MG TAB PO SCH ×2 (10:00→20:36)
--- NOTE | 2022-09-18 12:33 | P.PN ---
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 Review of Systems Neurological: Weakness, Confusion Physical Examination - Vital Signs Temperature: 98.1 F Blood Pressure: 148/64 Pulse: 75 Respirations: 16 Pulse Ox (%): 97 - Physical Exam General: Alert HEENT: Atraumatic, PERRLA, EOMI Neck: Supple, JVD not distended Respiratory: Clear to auscultation bilaterally, Normal air movement Cardiovascular: Regular rate/rhythm, Normal S1 S2 Gastrointestinal: Normal bowel sounds, No tenderness Musculoskeletal: No tenderness Integumentary: No rashes Neurological: Normal speech, Normal tone, Normal affect Lymphatics: No axilla or inguinal lymphadenopathy Assessment And Plan - Current Problems (Diagnosis) (1) Metastatic malignant neoplasm to breast Current Visit: Yes Status: Chronic Plan: will consult Dr. Delgado for a biopsy. Discussed the patient with Dr. Beckford. 6.1 Patient is aware of the MRI results. Have spoken to Dr. Solorzano. Very poor prognosis with brain mets. Less than a 6 month average life expectancy (2) Delirium Current Visit: Yes Status: Resolved Plan: Most likely from the brain mets. Will start steroids and keppra Consult to Dr. Louie. 6/1 improved with steroids. (3) End of life care Current Visit: Yes Status: Acute Plan: Discussed her prognosis with the family. They would like some pallative care. Will consult social media analyst for home bed, walker and home health. Will have her follow up with Dr. Beckford for pallative radiation and chemo. Plan on discharge tomorrow Discharge Plan: Home Plan to discharge in: 24 Hours - Code Status/Comfort Care Code Status Assessed: No Physician Review: Patient Assessed, Agree with Above Assessment and Plan Critical Care: Yes Time Spent Managing PTS Care (In Minutes): 30
--- NOTE | 2022-09-18 14:00 | P.PN ---
Date of Service: 09/18/22 Patient was sleeping when I rounded today. Apparently has not had any complaints of pain from biopsy sites, dressing has been intact. Strongly support the decision for palliative care. If I be be of further help please contact me otherwise I shall sign off the case. Thank you.
[2022-09-18] MEDS: ENOXAPARIN 40 MG/0.4 ML SQ SCH (17:18)
[2022-09-18] MEDS: AMLODIPINE 2.5 MG TAB PO SCH (20:36)
[2022-09-18] MEDS: LOSARTAN POTASSIUM 50 MG TABLET PO SCH (20:37)
[2022-09-19] MEDS: dexAMETHasone 4 MG/ML VIAL IV SCH ×3 (01:34→08:10)
[2022-09-19] MEDS: NA CHLORIDE 0.9% 1,000 ML IV SCH (01:34)
[2022-09-19 02:50] VITALS: O2SAT 93
[2022-09-19 05:12] VITALS: TEMP 97.7
[2022-09-19 06:23] LABS: Absolute Lymphocytes (CBC) 0.4 K/uL (0.7-4.9); Hematocrit 32.3 % (36.0-45.0); Lymphocytes % 3.3 % (15.3-44.8); MCV 91.3 fL (80-100); MPV 7.2 fL (7.6-11.3); RBC Red Blood Cell Count 3.54 M/uL (3.86-4.86)
[2022-09-19 06:44] LABS: Bilirubin Total 0.5 mg/dL (0.2-1.0); Potassium 3.8 mEq/L (3.5-5.1); Protein, Total 6.5 g/dL (6.4-8.2)
[2022-09-19] MEDS: INSULIN -REGULAR HUMAN 50 UNIT/0.5 ML ML SQ SCH (07:30)
--- NOTE | 2022-09-19 08:09 | P.DS ---
Admission Date: 09/16/22 Discharge Date: 09/19/22 Primary Care Provider: Breille Disposition: ROUTINE DISCHARGE Discharge Condition: FAIR Reason for Admission: Metastatic breast cancer - Problems (1) Metastatic malignant neoplasm to breast Current Visit: Yes Status: Chronic (2) Delirium Current Visit: Yes Status: Resolved (3) End of life care Current Visit: Yes Status: Acute Brief History of Present Illness: Patient is an office patient of [employer] with a history of htn and white coat syndrome. For the last few weeks she has been complaining of upper back pain. The patient has been confused a lot for the last few week. Her has been having to help her with ADl's. She has had falls, nausea. She did not know the month, president or season. Normally she is very sharp. The patient has had to help her in the shower and has noticed that her left breast is significantly large. she had a indurated mass. The patient was sent to the ER. was found to have a 10cm breast mass. She has a 2cm mass in the brain. With a thoracic fracture and liver mets. The patient was then admitted. She states she has had this mass for over a year. Hospital Course: Patient was admitted for a breast mass and confusion. She has breast cancers with multiple brain mets, spinal mets, and a liver mets. Very poor prognosis. Confusion improved with steroids. She had a biopsy done by Dr. Delgado. Will have her follow up with Dr. Solorzano and Dr. Beckford. However care at this point is mostly palliative care. thank you for allowing me to take part Vital Signs/Physical Exam: Temp Pulse Resp BP Pulse Ox 97.7 F 51 18 152/65 H 96 09/19/22 04:00 09/19/22 04:00 09/19/22 04:00 09/19/22 04:00 09/19/22 04:00 General: Alert, In no apparent distress HEENT: Atraumatic, PERRLA, EOMI Neck: Supple, JVD not distended Respiratory: Clear to auscultation bilaterally, Normal air movement Cardiovascular: Regular rate/rhythm, Normal S1 S2 Gastrointestinal: Normal bowel sounds, No tenderness Musculoskeletal: No tenderness Integumentary: No rashes Neurological: Normal speech, Normal tone, Normal affect Lymphatics: No axilla or inguinal lymphadenopathy Laboratory Data at Discharge: WBC 13.20 thou/uL (4.3-10.9) H 09/19/22 05:52 Hgb 10.9 g/dL (12.0-15.0) L 09/19/22 05:52 Hct 32.3 % (36.0-45.0) L 09/19/22 05:52 Plt Count 308 thou/uL (152-406) D 09/19/22 05:52 Sodium 134 mEq/L (136-145) L 09/19/22 05:52 Potassium 3.8 mEq/L (3.5-5.1) 09/19/22 05:52 BUN 22 mg/dL (7-18) H 09/19/22 05:52 Creatinine 0.97 mg/dL (0.55-1.02) 09/19/22 05:52 Glucose 121 mg/dL (74-106) H 09/19/22 05:52 Total Bilirubin 0.5 mg/dL (0.2-1.0) 09/19/22 05:52 AST 89 U/L (15-37) H 09/19/22 05:52 ALT 53 U/L (13-56) 09/19/22 05:52 Alkaline Phosphatase 104 U/L (45-117) 09/19/22 05:52 Home Medications: Amlodipine Besylate [Norvasc] 2.5 mg PO BEDTIME 09/16/22 Aspirin [Lili Chewable Aspirin] 1 tab PO DAILY 09/16/22 Cholecalciferol (Vitamin D3) [Vitamin D3] 125 mcg PO BID 09/16/22 Famotidine [Pepcid AC] 20 mg PO DAILY 09/16/22 Losartan Potassium 100 mg PO BEDTIME 09/16/22 Multivitamin/Iron/Folic Acid [Centrum Adults Tablet] 1 tab PO DAILY 09/16/22 Nebivolol HCl 5 mg PO BEDTIME 09/16/22 Niacin 500 mg PO BEDTIME 09/16/22 Ubidecarenone [Co Q-10] 200 mg PO DAILY 09/16/22 Omeprazole 20 mg PO DAILY 90 Days #90 tab 09/19/22 dexAMETHasone [Decadron] 4 mg PO QID 30 Days #120 tab 09/19/22 levETIRAcetam [Keppra Tab] 500 mg PO BID 90 Days #90 tab 09/19/22 New Medications: dexAMETHasone [Decadron] 4 mg PO QID 30 Days #120 tab levETIRAcetam [Keppra Tab] 500 mg PO BID 90 Days #90 tab Omeprazole 20 mg PO DAILY 90 Days #90 tab Diet: Regular Time spent managing pt's care (in minutes): 30
[2022-09-19] MEDS: levETIRAcetam 500 MG TAB PO SCH (08:10)
[2022-09-19] MEDS: COENZYME Q10- 200 MG CAP PO SCH (08:10)
[2022-09-19] MEDS: FAMOTIDINE 20 MG TAB PO SCH (08:10)
[2022-09-19 10:02] VITALS: BP 155/76
== END 2022-09-19 10:00 | disposition home health service (06) | DRG 598 ==
LOC: ER 12:18 → 2ND 14:43
PROVIDERS: ADMIT Internal Medicine; ATTEND Internal Medicine
PROC: 0HBU3ZX Excision of Left Breast, Percutaneous Approach, Diagnostic (ICD-10-PCS; principal; 2022-09-17 12:15)
DX: C50.912 Malignant neoplasm of unspecified site of left female breast (principal); C78.7 Secondary malignant neoplasm of liver and intrahepatic bile duct; C79.31 Secondary malignant neoplasm of brain; C79.51 Secondary malignant neoplasm of bone; F05 Delirium due to known physiological condition; M84.58XA Pathological fracture in neoplastic disease, other specified site, initial encounter for fracture; I10 Essential (primary) hypertension; G93.9 Disorder of brain, unspecified; E78.00 Pure hypercholesterolemia, unspecified; Z66 Do not resuscitate; Z51.5 Encounter for palliative care; Z79.82 Long term (current) use of aspirin; Z79.899 Other long term (current) drug therapy
CPT/HCPCS: 36415; 70450; 70553; 71250; 72128; 80053; 82947; 84484; 85025; 85379; 88305; 93005; 96374; 99285; A9577; J0360; J1100; J1650; J1815; J2001; J2405; J2704; J3010; J7030; J7120